=== PATIENT | male | born 1965 | race Two or more races ===

== ENCOUNTER 2024-04-27 06:40 | Day surgery (SDC) | payer MEDICAID, SELFPAY ==
--- NOTE | 2024-04-26 06:50 | EKG_ITS ---
[facility] Test Date: 2024-04-26 Pat Name: ROWDY WEBB Department: Room: - Gender: Male [employer]: JULIO : 1965 Requested By: Mark Deutsch Order Number: [id number] Reading MD: Mark Deutsch Measurements Intervals [place] Rate: 72 P: 63 DC: 138 QRS: 73 QRSD: 140 T: 48 QT: 387 QTc: 425 Interpretive Statements SINUS RHYTHM RIGHT BUNDLE BRANCH BLOCK No previous ECG available for comparison /[id number].pdf
[2024-04-26 07:34] VITALS: BMI 24.3
[2024-04-26 09:54] LABS: Basophils % (Auto) 0 % (0-2.5); Eosinophils # (Auto) 0.1 Thou/mm3 (0.0-0.5); Eosinophils % (Auto) 1 % (0-10); Hematocrit 43.2 % (41.0-53.0); Hemoglobin 14.3 g/dL (13.5-16.0); Immature Granulocytes % (Auto) 0 % (0-0); Immature Granulocytes Auto 0.02 Thou/mm3 (0.00-0.00); Lymphocytes # (Auto) 1.9 Thou/mm3 (1.0-4.8); Lymphocytes % (Auto) 17 % (10-50); Mean Corpuscular HGB Conc 33.1 g/dl (31.0-37.0); Mean Corpuscular Hemoglobin 31.1 pg (25.0-35.0); Mean Corpuscular Volume 94 fL (80-100); Monocytes # (Auto) 0.7 Thou/mm3 (0.0-0.8); Monocytes % (Auto) 6 % (0-12); Neutrophils # (Auto) 8.5 Thou/mm3 (1.8-7.7); Neutrophils % (Auto) 76 % (37-80); Nucleated Red Blood Cell % 0 /100 WBC (0); Platelet Count 279 Thou/mm3 (140-440); RDW Standard Deviation 44.6 fL (35.1-43.9); White Blood Count 11.2 Thou/mm3 (3.8-10.6)
[2024-04-26 10:03] LABS: Partial Thromboplastin Time 28.3 Seconds (22.0-36.0); Prothrombin Time 10.7 Seconds (9.0-12.2)
[2024-04-26 10:19] LABS: Alanine Aminotransferase 8 U/L (10-49); Albumin, Serum 4.5 gm/dL (3.4-4.8); Albumin/Globulin Ratio 1.5 (1.2-2.2); Alkaline Phosphatase 78 U/L (46-116); Anion Gap 8 (7-16); Aspartate Amino Transferase 10 U/L (0-34); BUN/Creatinine Ratio 20 Ratio (12-20); Bilirubin,Total 0.4 mg/dL (0.3-1.2); Blood Urea Nitrogen 16 mg/dL (9-23); Calcium 9.5 mg/dL (8.3-10.6); Calcium (Corrected) 9.5 mg/dL (8.5-10.1); Carbon Dioxide 27.5 mMol/L (20.0-31.0); Chloride 106 mMol/L (98-107); Creatinine (Component) 0.8 mg/dL (0.6-1.3); Estimated Creatinine Clearance 88.6 mL/min (>60); Glucose 80 mg/dL (74-106); Osmolality,Calculated 281 (275-295); Potassium 3.8 mMol/L (3.4-5.1); Sodium 141 mMol/L (136-145); Total Protein 7.5 gm/dL (5.7-8.2); eGFR > 60 See Note
[2024-04-26 10:25] LABS: COVID-19 Antigen (In-House) Negative (Negative)
--- NOTE | 2024-04-26 12:55 | SUR.PREOP ---
Pt stated he has a cough and congestion, he stated he saw Dr Gill 2 days ago and made Dr Gill aware of his symptoms and Dr Gill said it was okay as long as pt had no fever, Pt said no fevers. Information was also shared with Dr Deutsch. Pt tested negative for covid.
--- NOTE | 2024-04-26 15:28 | SUR.PREOP ---
Pt notified to come in at 0700 tomorrow for surgery.
[2024-04-27] VITALS (8 sets, daily range): BP systolic 113–133; BP diastolic 67–81; PULSE 57–67; RESP 12–15; TEMP 36.1–36.4; O2SAT 95–99; BMI 23.3
[2024-04-27] MEDS: RINGERS LACTATED 1000 ML 1,000 ML 20 ML IV (07:10)
--- NOTE | 2024-04-27 10:27 | SUR.PHASEI ---
1027: Pt. wakes to name then drifts back to sleep, vitals stable, breathing unlabored, no complaint of pain or nausea, dressing to ABD CDI, no active bleed noted, report received from MD Mohamud and Gurpreet HALEY.
--- NOTE | 2024-04-27 10:48 | PD.SUROPNT ---
Date of Procedure 04/27/24 Post Op Diagnosis Same Procedure Repair of the ventral hernia with 1.7 inch Ventralex mesh Findings Patient is found to have omentum herniating through the supraumbilical ventral hernia which was reduced and repaired Procedure Description After the patient was brought to the operating room LMA anesthesia was given. Then the abdomen was prepped with ChloraPrep solution draped in a sterile manner. Timeout is performed. Then I made a 5 cm long incision over the supraumbilical region. Reaching subcutaneous tissue and patient was found to have a large sac containing omentum. The sac was excised and then the contents which were mostly omentum were reduced into the abdominal cavity. Then the edges were defined with a right angle clamp and the cleared the undersurface of the fascia from any adhesions. Then I placed 1.7 inch Ventralex mesh and attached the Marlex straps with 2 Prolene. Then I placed 2-0 Prolene on the opposite side of the Marlex mesh as well. At the end the repair appeared sound the mesh was in place satisfactorily. Subcu incision was closed with 3-0 chromic and I injected half percent Marcaine for analgesia the skin was closed with 4-0 Monocryl subcuticular sutures and dressing was applied with Adaptic and 4 x 4 gauze. Patient tolerated the procedure well Anesthesia other (General LMA) Pathology / specimen None Estimated Blood Loss 10 Surgeon Jarek Hauser MD Surgical Staff Operation Date: 04/27/24 09:00 Case Staff Anesthesiologist: Rodney Mohamud RN First Assistant: Kelly Lynne
--- NOTE | 2024-04-27 11:24 | SUR.PHASEII ---
1124: Pt. AAOx4, vitals stable, breathing unlabored, no complaint of pain or nausea, dressing to ABD CDI, no active bleed noted, pt. tolerated sips of water well, pt. ambulated to wheelchair with steady gait and no assist, no complications. Gave discharge instructions to the pt. and his ride using hand laminator Roosevelt [id number], Both verbalized understanding and had no further questions. Pt. left with all personal belongings.
== END 2024-04-27 11:24 | disposition home or self-care (01) ==
PROVIDERS: Anesthesiology; PCP Family Medicine; Referring Provider Surgery; Visit Provider Surgery
DX: K43.9 Ventral hernia without obstruction or gangrene (principal); Z01.810 Encounter for preprocedural cardiovascular examination
CPT/HCPCS: 49593; 36415; 80053; 85025; 85610; 85730; 87811; 93005; A4217; A4649; C1781; J1100; J1885; J2250; J2405; J2704; J3010; J3490; J7120